=== PATIENT | female | born 1970 | race Caucasian/White ===

== ENCOUNTER → 2016-09-29 | Outpatient (CLI) | payer OTHER ==
[2016-09-29 10:40] LABS: CH 32.2; HCT 44.1 % (34.0-46.0); HDW 2.38; HGB 14.9 gm/dL (11.4-16.0); MCHC 33.7 g/dL (31.0-37.0); MCV 94.9 fL (80.0-100.0); Mean Platelet Volume 9.2; RBC 4.65 m/uL (3.80-5.40); RDW 12.8 % (11.5-15.5); WBC 3.1 k/uL (3.8-10.6)
[2016-09-29 11:10] LABS: Anion Gap 10 mmol/L; Blood Urea Nitrogen 17 mg/dL (7-17); Calcium 9.3 mg/dL (8.4-10.2); Carbon Dioxide 25 mmol/L (22-30); Chloride 106 mmol/L (98-107); Cholesterol 202 mg/dL (<200); Glucose 82 mg/dL (74-99); HDL Cholesterol 61 mg/dL (40-60); Non-African American GFR(MDRD) 59 (>60 ml/min/1.73 sqM); Potassium 4.3 mmol/L (3.5-5.1); Sodium 141 mmol/L (137-145); Triglycerides 67 mg/dL (<150)
[2016-09-29 12:00] LABS: Add Differential Manual Differential
--- NOTE | 2016-09-29 12:13 | XR ---
EXAMINATION TYPE: XR sinus DATE OF EXAM: 09/29/2016 COMPARISON: NONE HISTORY: 46 year-old female post nasal drip TECHNIQUE: 4 views FINDINGS: The frontal, maxillary, ethmoid, and sphenoid sinuses appear well pneumatized. No air-fluid levels se en within the maxillary sinuses on the Johnson' view. Nasal septum is relatively midline. Orbits are s ymmetric. Mastoid air cells appear well-pneumatized. The nasal bone is intact. IMPRESSION: No radiographically appreciable paranasal sinus disease.
[2016-09-29 12:14] LABS: Nucleated Red Blood Cells 0 /100 WBC (0-0); Total Cells Counted 100
[2016-09-29 12:19] LABS: RBC Morphology Normal
[2016-09-29 12:20] LABS: Manual Review Performed
== END | disposition home or self-care (01) ==
LOC: LABWHC1 10:02
PROVIDERS: ATTEND Internal Medicine
DX: R09.82 Postnasal drip (principal); Z13.0 Encounter for screening for diseases of the blood and blood-forming organs and certain disorders involving the immune mechanism; Z13.228 Encounter for screening for other metabolic disorders; Z13.29 Encounter for screening for other suspected endocrine disorder; Z13.220 Encounter for screening for lipoid disorders
CPT/HCPCS: 36415; 70220; 80048; 80061; 82306; 84443; 85025